=== PATIENT | male | born 1965 | race Caucasian/White ===

== ENCOUNTER 2017-06-12 15:29 | Inpatient (IN) | payer OTHER ==
[~2017-06-12] VITALS: Ht 188 cm; Wt 106.5 kg
[~2017-06-12 15:29] MED LIST: FAMO40TA4 PO; HYDR-3240 PO; METH4TAB2 PO; METH500T97 PO; OMEP-110 PO
[2017-06-12] MEDS ORDERED: FAMOTIDINE 20 MG/2 ML IVP ONE (16:00)
[2017-06-12] MEDS ORDERED: SODIUM CHLORIDE FLUSH 10ML SYR IVF ONE (16:00)
[2017-06-12] MEDS ORDERED: ONDANSETRON 2MG/ML, 2ML IVPush ONE (16:00)
[2017-06-12] MEDS ORDERED: MORPHINE SULFATE 4 MG/ML, 1ML ONE (16:12)
[2017-06-12] MEDS ORDERED: FAMOTIDINE 20 MG/2 ML ONE (16:13)
[2017-06-12 16:15] LABS: BASOPHILS # (AUTO) 0.23 x10^3/uL (0-0.1); BASOPHILS % (AUTO) 2 % (0-1); EOSINOPHILS % (AUTO) 0 % (1-7); LYMPHOCYTES # (AUTO) 0.83 x10^3/uL (1-3.4); LYMPHOCYTES % (AUTO) 6 % (22-44); MD NO; MEAN CORPUSCULAR HEMOGLOBIN 28.6 pg (27.5-34.5); MEAN CORPUSCULAR HGB CONC 33.8 g/dL (33.2-36.2); MEAN CORPUSCULAR VOLUME 84.6 fL (81-97); MEAN PLATELET VOLUME 7.3 fL (7.4-10.4); MONOCYTES % (AUTO) 6 % (2-9); NEUTROPHILS # (AUTO) 12.31 x10^3/uL (1.8-6.8); NEUTROPHILS % (AUTO) 87 % (42-75); PLATELET COUNT 234 x10^3/uL (130-400); RED BLOOD COUNT 5.86 x10^6/uL (4.38-5.82); RED CELL DISTRIBUTION WIDTH 13.5 % (9.4-14.8)
[2017-06-12 16:23] LABS: ALANINE AMINOTRANSFERASE 59 U/L (12-78); ALBUMIN 4.1 g/dL (3.4-5.0); ANION GAP 11 mmol/L (5-15); CALCIUM 9.4 mg/dL (8.5-10.1); CHLORIDE 102 mmol/L (98-107); CREATININE 1.27 mg/dL (0.7-1.3)
[2017-06-12 16:26] LABS: ALKALINE PHOSPHATASE 99 U/L (45-117); BILIRUBIN,TOTAL 1.9 mg/dL (0.2-1.0); TOTAL PROTEIN 8.7 g/dL (6.4-8.2)
[2017-06-12] MEDS ORDERED: morphine SULFATE 10 MG/ML, 1ML IVPush ONE (16:30)
[2017-06-12] MEDS ORDERED: SODIUM CHLORIDE 0.9% 1,000ML IVBOLUS ONE (16:30)
[2017-06-12] MEDS ORDERED: OMNIPAQUE 350 MG/ML, 100ML BOTTLE ONE (17:34)
[2017-06-12] MEDS ORDERED: CEFTRIAXONE PMX 2GM/50ML 50 ML IV ONE (19:00)
[2017-06-12] MEDS ORDERED: CEFTRIAXONE PMX 2GM/50ML 50 ML ONE (19:33)
[2017-06-12] MEDS ORDERED: POTASSIUM CHLORIDE 20 MEQ in D5%-0.45% NACL 1,000 ML IV SCH (19:35)
[2017-06-12] MEDS ORDERED: ENALAPRILAT 1.25 MG/ML, 2ML IV PRN (20:00)
[2017-06-12] MEDS ORDERED: ONDANSETRON 2MG/ML, 2ML IVPush PRN (20:00)
[2017-06-12] MEDS ORDERED: DIPHENHYDRAMINE 50 MG/ML, 1ML IV PRN (20:00)
[2017-06-12] MEDS ORDERED: ACETAMINOPHEN 650 MG/20.3 ML UDC PO PRN (20:00)
[2017-06-12] MEDS ORDERED: CETI10CA PO (20:09)
[2017-06-12] MEDS ORDERED: ALLO300T PO (20:09)
[2017-06-12] MEDS: MORPHINE SULFATE 4 MG/ML, 1ML IVPush PRN (21:04)
[2017-06-13] MEDS ORDERED: POTASSIUM CHLORIDE 20 MEQ in D5%-0.45% NACL 1,000 ML IV SCH
[2017-06-13] MEDS: CIPROFLOXACIN/PMX 400MG/200ML 200 ML IVPB SCH ×3 (00:23→17:27)
[2017-06-13 00:35] VITALS: BP 144/82
[2017-06-13] MEDS ORDERED: FOLI100T PO (00:47)
[2017-06-13 01:42] VITALS: BP 126/79
[2017-06-13] MEDS: METRONIDAZOLE PMX 500MG/100ML 100 ML IVPB SCH ×3 (02:11→17:25)
[2017-06-13] MEDS: MORPHINE SULFATE 4 MG/ML, 1ML IVPush PRN ×4 (04:52→11:34)
[2017-06-13 08:08] VITALS: BP 118/81
[2017-06-13 09:28] LABS: ALBUMIN 3.4 g/dL (3.4-5.0); BILIRUBIN, DIRECT 0.4 mg/dL (0.1-0.2)
[2017-06-13 09:30] LABS: BILIRUBIN,TOTAL 1.4 mg/dL (0.2-1.0); TOTAL PROTEIN 7.5 g/dL (6.4-8.2)
[2017-06-13] MEDS: D5%-0.45NACL+KCL 20MEQ 1,000 ML IV SCH ×3 (11:33→19:37)
[2017-06-13] MEDS ORDERED: BUPIVACAINE/PF 0.5% ONE (13:55)
[2017-06-13] MEDS ORDERED: EPINEPHRINE 1 MG/ML, 1ML ONE (13:55)
[2017-06-13] MEDS ORDERED: FENTANYL PF 250 MCG/5ML ONE (14:16)
[2017-06-13] MEDS ORDERED: MIDAZOLAM 1 MG/ML, 2ML ONE (14:16)
[2017-06-13] MEDS ORDERED: PROPOFOL 10 MG/ML, 20ML ONE (14:44)
[2017-06-13] MEDS ORDERED: ROCURONIUM 10MG/ML,5ML ONE (14:44)
[2017-06-13] MEDS ORDERED: SUCCINYLCHOLINE 20 MG/ML, 10ML ONE (14:44)
[2017-06-13] MEDS ORDERED: GLYCOPYRROLATE 0.2MG/1ML, 5ML ONE (14:44)
[2017-06-13] MEDS ORDERED: DEXAMETHASONE 4 MG/ML, 1ML ONE (14:44)
[2017-06-13] MEDS ORDERED: ONDANSETRON 2MG/ML, 2ML ONE (14:44)
[2017-06-13] MEDS ORDERED: NEOSTIGMINE 1 MG/ML, 10ML ONE (14:44)
[2017-06-13] MEDS ORDERED: CEFAZOLIN 1,000 MG ONE (14:44)
[2017-06-13] MEDS ORDERED: LORazepam 2 MG/ML, 1ML IVPush PRN (15:00)
[2017-06-13] MEDS ORDERED: LABETALOL 5MG/ML, 20ML IV PRN (15:00)
[2017-06-13] MEDS ORDERED: ONDANSETRON 2MG/ML, 2ML IVPush PRN ×2 (15:00→16:30)
[2017-06-13] MEDS ORDERED: PROMETHAZINE 25 MG/ML, 1ML IV PRN (15:00)
[2017-06-13] MEDS ORDERED: FENTANYL PF 100 MCG/2ML IV PRN (15:00)
[2017-06-13] MEDS ORDERED: MEPERIDINE/PF 25MG/0.5ML IVPush PRN (15:00)
[2017-06-13] MEDS ORDERED: hydrALAzine 20 MG/ML, 1ML IV PRN ×2 (15:00→16:30)
[2017-06-13] MEDS ORDERED: ACETAMINOPHEN 325 MG TABLET PO PRN (15:00)
[2017-06-13] MEDS ORDERED: morphine SULFATE 10 MG/ML, 1ML IV PRN (15:00)
[2017-06-13] MEDS ORDERED: OXYcodone 5 MG/5 ML ORAL.SOL UDC PO PRN (15:00)
[2017-06-13] MEDS ORDERED: HYDROcodone/APAP 7.5-325MG/15ML UDC PO PRN (15:00)
[2017-06-13] MEDS ORDERED: FENTANYL PF 100 MCG/2ML ONE ×2 (15:18→16:37)
[2017-06-13] MEDS ORDERED: ACETAMINOPHEN 650 MG/20.3 ML UDC PO PRN (16:30)
[2017-06-13] MEDS ORDERED: DIPHENHYDRAMINE 25 MG CAPSULE PO PRN (16:30)
[2017-06-13] MEDS ORDERED: OXYcodone 5 MG/5 ML ORAL.SOL UDC ONE (16:37)
[2017-06-13] MEDS: POTASSIUM CHLORIDE 20 MEQ in D5%-0.45% NACL 1,000 ML IV SCH (17:25)
[2017-06-13 19:17] VITALS: BP 145/89
[2017-06-14] MEDS: METRONIDAZOLE PMX 500MG/100ML 100 ML IVPB SCH (01:34)
[2017-06-14 01:55] VITALS: BP 124/84
[2017-06-14] MEDS: POTASSIUM CHLORIDE 20 MEQ in D5%-0.45% NACL 1,000 ML IV SCH ×2 (02:05→12:09)
[2017-06-14] MEDS: D5%-0.45NACL+KCL 20MEQ 1,000 ML IV SCH ×2 (02:05→12:00)
[2017-06-14] MEDS: ONDANSETRON ODT 4 MG PO PRN ×2 (03:46→11:41)
[2017-06-14 04:03] VITALS: BP 119/80
[2017-06-14] MEDS: CIPROFLOXACIN/PMX 400MG/200ML 200 ML IVPB SCH (05:15)
[2017-06-14 05:17] LABS: BASOPHILS # (AUTO) 0.07 x10^3/uL (0-0.1); BASOPHILS % (AUTO) 1 % (0-1); EOSINOPHILS % (AUTO) 0 % (1-7); LYMPHOCYTES # (AUTO) 0.55 x10^3/uL (1-3.4); LYMPHOCYTES % (AUTO) 5 % (22-44); MD NO; MEAN CORPUSCULAR HGB CONC 34.2 g/dL (33.2-36.2); MEAN CORPUSCULAR VOLUME 84.6 fL (81-97); MEAN PLATELET VOLUME 7.3 fL (7.4-10.4); MONOCYTES # (AUTO) 0.67 x10^3/uL (0.2-0.8); MONOCYTES % (AUTO) 6 % (2-9); NEUTROPHILS # (AUTO) 10.15 x10^3/uL (1.8-6.8); NEUTROPHILS % (AUTO) 89 % (42-75); PLATELET COUNT 213 x10^3/uL (130-400); RED BLOOD COUNT 4.72 x10^6/uL (4.38-5.82); RED CELL DISTRIBUTION WIDTH 13.4 % (9.4-14.8)
[2017-06-14 05:25] LABS: ALBUMIN 3.1 g/dL (3.4-5.0); ANION GAP 8 mmol/L (5-15); CALCIUM 8.5 mg/dL (8.5-10.1); CHLORIDE 103 mmol/L (98-107); CREATININE 1.24 mg/dL (0.7-1.3)
[2017-06-14 07:01] VITALS: BP 123/77
[2017-06-14] MEDS ORDERED: OMEPRAZOLE 20 MG CAPSULE.DR PO SCH (12:30)
[2017-06-14] MEDS ORDERED: ALLOPURINOL 300 MG TABLET PO SCH (12:30)
[2017-06-14 12:49] VITALS: BP 143/93
[2017-06-14] MEDS ORDERED: POTASSIUM CHLORIDE 20 MEQ in D5%-0.45% NACL 1,000 ML IV SCH (19:35)
== END 2017-06-14 15:50 | disposition home or self-care (01) | DRG 419 ==
LOC: ED 16:39 → 4NOR 20:38 → ED 21:19 → EDIP 21:31 → UNDOADMIN 21:31 → DCLOUNGE 06-14 15:38
PROVIDERS: ADMIT Surgery; ATTEND Surgery
PROC: 0FT44ZZ Resection of Gallbladder, Percutaneous Endoscopic Approach (ICD-10-PCS; principal; 2017-06-13 14:00)
DX: K80.12 Calculus of gallbladder with acute and chronic cholecystitis without obstruction (principal); E11.9 Type 2 diabetes mellitus without complications; G89.29 Other chronic pain; R50.9 Fever, unspecified; K21.9 Gastro-esophageal reflux disease without esophagitis; K57.90 Diverticulosis of intestine, part unspecified, without perforation or abscess without bleeding; K59.00 Constipation, unspecified; M54.9 Dorsalgia, unspecified
CPT/HCPCS: 36415; 74177; 76700; 80048; 80053; 80076; 82040; 83690; 85025; 88304; 96365; 96375; C1729; J0171; J0690; J0696; J0744; J1100; J2250; J2405; J2704; J2710; J3010; J3480; J3490; Q0162; Q9967; J0330; J1200; J2270; J7030; S0028